=== PATIENT | male | born 1990 | race African-American/Black ===

== ENCOUNTER → 2024-04-14 | Outpatient (CLI) | payer OTHER | END | disposition home or self-care (01) | LOC: LABMN 11:40 | PROVIDERS: ATTEND Internal Medicine | DX: Z02.1 Encounter for pre-employment examination (principal) | CPT/HCPCS: 86706; 86735; 86762; 86765; 86787 ==

== ENCOUNTER 2024-08-24 10:50 | Emergency (ER) | payer OTHER ==
[~2024-08-24] VITALS: Ht 170.2 cm; Wt 86.8 kg
[2024-08-24 10:59] VITALS: BP 132/74; PULSE 63; RESP 16; TEMP 99.3; O2SAT 98
[2024-08-24 12:07] LABS: COVID AG,FIA SOURCE NASAL SWAB
[2024-08-24 12:30] LABS: SARS-COV2 (COVID) ANTIGEN,FIA Negative (Negative)
[2024-08-24 12:31] LABS: INFLUENZA TYPE A NEGATIVE FOR TYPE A (NEGATIVE); INFLUENZA TYPE B NEGATIVE FOR TYPE B (NEGATIVE)
[2024-08-24] MEDS: ACETAMINOPHEN 325 MG TABLET PO ONE (13:12)
== END 2024-08-24 13:52 | disposition home or self-care (01) ==
LOC: EMS 10:50
DX: J20.8 Acute bronchitis due to other specified organisms (principal); J45.909 Unspecified asthma, uncomplicated; B97.89 Other viral agents as the cause of diseases classified elsewhere; Z20.822 Contact with and (suspected) exposure to COVID-19
CPT/HCPCS: 71045; 87804; 99284

== ENCOUNTER 2024-08-28 10:06 | Emergency (ER) | payer OTHER ==
[~2024-08-28] VITALS: Ht 170.2 cm; Wt 86.3 kg
[2024-08-28 10:16] VITALS: BP 127/72; PULSE 74; RESP 18; TEMP 98.2; O2SAT 97
[2024-08-28] MEDS: DEXAMETHASONE 4 MG TABLET PO ONE (11:45)
[2024-08-28] MEDS: OXYMETAZOLINE HCL 0.05% 15 ML NASAL SPRAY NASAL ONE (11:45)
[2024-08-28] MEDS ORDERED: AMOX1TAB15 PO (12:00)
== END 2024-08-28 12:17 | disposition home or self-care (01) ==
LOC: EMS 10:06
DX: J01.90 Acute sinusitis, unspecified (principal); R05.9 Cough, unspecified; R06.02 Shortness of breath
CPT/HCPCS: 99283; J8540

== ENCOUNTER 2024-10-15 00:45 | Emergency (ER) | payer OTHER ==
[~2024-10-15] VITALS: Ht 170.2 cm; Wt 88.6 kg
[~2024-10-15 00:45] MED LIST: AMOX1TAB15 PO
[2024-10-15 01:07] VITALS: BP 148/84; PULSE 81; RESP 18; TEMP 98.4; O2SAT 99
[2024-10-15] MEDS ORDERED: IBUP-1492 PO (03:09)
[2024-10-15] MEDS ORDERED: BACTDSB PO (03:09)
[2024-10-15] MEDS ORDERED: CEPH-558 PO (03:09)
[2024-10-15] MEDS: CefTRIAXone SODIUM 1 GM/VIAL IM ONE (03:32)
[2024-10-15] MEDS: LIDOCAINE/PF 1% 2 ML VIAL IM ONE (03:33)
[2024-10-15] MEDS: IBUPROFEN 600 MG TABLET PO ONE (03:33)
== END 2024-10-15 03:39 | disposition home or self-care (01) ==
LOC: EMS 00:45
DX: L03.113 Cellulitis of right upper limb (principal)
CPT/HCPCS: 99284; 73110; 73130; 96372; J0696; J3490

== ENCOUNTER 2025-01-01 14:15 | Emergency (ER) | payer OTHER ==
[~2025-01-01] VITALS: Ht 170.2 cm; Wt 84.1 kg
[~2025-01-01 14:15] MED LIST changes: +BACTDSB PO; +CEPH-558 PO; +IBUP-1492 PO
[2025-01-01 14:36] VITALS: BP 116/66; PULSE 77; RESP 18; TEMP 98.2; O2SAT 99
[2025-01-01] MEDS: BACITRACIN 0.9 GM PACKET OINTMENT TP ONE (15:07)
[2025-01-01] MEDS: CEPHALEXIN MONOHYDRATE 500 MG CAPSULE PO ONE (15:07)
[2025-01-01] MEDS ORDERED: CEPH-558 PO (15:30)
[2025-01-01] MEDS ORDERED: BACI28.410 TP (15:30)
== END 2025-01-01 16:07 | disposition home or self-care (01) ==
LOC: EMS 14:15
DX: S50.811A Abrasion of right forearm, initial encounter (principal); Y04.8XXA Assault by other bodily force, initial encounter; Y93.89 Activity, other specified; Y92.89 Other specified places as the place of occurrence of the external cause; Y99.8 Other external cause status
CPT/HCPCS: 99283